=== PATIENT | male | born 1990 | race Two or more races ===

== ENCOUNTER 2020-10-09 07:32 | Emergency (ER) | payer OTHER ==
[~2020-10-09] VITALS: Ht 180.3 cm; Wt 70.8 kg
[2020-10-09] MEDS ORDERED: ULTRAM50 MG PO (12:42)
[2020-10-09] MEDS ORDERED: TUSSIN DM SYRU118 ML PO (12:54)
[2020-10-09] MEDS ORDERED: AMOX1TAB5 PO (12:54)
== END 2020-10-09 13:07 | disposition home or self-care (01) ==
LOC: ER 07:32
DX: J06.9 Acute upper respiratory infection, unspecified (principal); Z11.52 Encounter for screening for COVID-19

== ENCOUNTER 2025-01-29 15:01 | Emergency (ER) | payer OTHER ==
[~2025-01-29] VITALS: Ht 177.8 cm; Wt 73.5 kg
[~2025-01-29 15:01] MED LIST: AMOX1TAB5 PO; TUSSIN DM SYRU118 ML PO; ULTRAM50 MG PO
[2025-01-29] MEDS ORDERED: KETOROLAC TROMETHAMINE 30 MG VIAL IM STA (16:52)
[2025-01-29] MEDS ORDERED: ORPHENADRINE CITRATE 30 MG/ML AMPUL IM STA (16:53)
[2025-01-29] MEDS ORDERED: KETOROLAC TROMETHAMINE 30 MG VIAL ONE (16:55)
[2025-01-29] MEDS ORDERED: ORPHENADRINE CITRATE 30 MG/ML AMPUL ONE (16:56)
[2025-01-29 17:11] LABS: BASO % 0.5 % (0.1-1.2); EOS # 0.40 (0.04-0.54); EOS % 4.8 % (0.7-7.0); LYMPH # 2.93 (1.18-3.74); LYMPH % 34.9 % (19.3-53.1); MEAN PLATELET VOLUME 10.90 fl (9.4-12.4); MONO # 0.78 (0.24-0.82); MONO % 9.3 % (4.7-12.5); NEUT # 4.23 (1.56-6.13); NEUT % 50.3 % (34.0-71.1); RED CELL DISTRIBUTION WIDTH 13.6 % (11.6-14.4)
[2025-01-29 17:53] LABS: ALT/SGPT 54.0 U/L (12-78); AST/SGOT 20.0 U/L (15-37); BILIRUBIN TOTAL 0.49 mg/dL (0.3-1.2); BUN CREA RATIO 13.0 (7.0-25.0); CREATININE SERUM 1.04 mg/dL (0.70-1.30); GFR 82.25; GLOBULINA 4.1 G/DL (2.4-3.5); GLUCOSE FASTING 83.0 mg/dL (65-100); OSMOLALITY SERUM 281.0 MOSM/KG (275-295)
== END 2025-01-29 19:39 | disposition home or self-care (01) ==
LOC: ER 15:02
PROVIDERS: General Practice
DX: B00.1 Herpesviral vesicular dermatitis (principal)